=== PATIENT | male | born 1995 | race Caucasian/White ===

== ENCOUNTER 2019-03-13 19:50 | Emergency (ER) | payer OTHER ==
[~2019-03-13] VITALS: Ht 172.7 cm; Wt 92.5 kg
[2019-03-13] MEDS ORDERED: BUTALB-ACETAMI1 EACH PO (23:29)
[2019-03-13] MEDS ORDERED: KETOROLAC TROME10 MG PO (23:29)
[2019-03-13] MEDS ORDERED: FLONASE ALLERG9.9 ML NASAL (23:34)
[2019-03-13] MEDS ORDERED: BUTALB-ACETAMI1 EAC2 PO (23:34)
== END 2019-03-14 00:20 | disposition home or self-care (01) ==
LOC: ER 19:50
DX: R51 Headache (principal)